=== PATIENT | male | born 1970 | race Hispanic/Latino ===

== ENCOUNTER 2020-11-22 19:56 | Emergency (ER) | payer OTHER ==
[2020-11-22] MEDS ORDERED: MORPHINE 4 MG/1 ML INJ IV ONE ×2 (20:09→23:01)
[2020-11-22] MEDS ORDERED: KETOROLAC 30 MG/1 ML INJ IV ONE (20:09)
[2020-11-22] MEDS ORDERED: TETANUS,DIPH,PERTUSS(ACELL) VACCINE 0.5 ML SYRINGE IM ONE (20:09)
[2020-11-22] MEDS ORDERED: ONDANSETRON 4 MG/2 ML INJ IV ONE ×2 (20:09→23:01)
[2020-11-22] MEDS ORDERED: ceFAZolin/NS 1 GM/50 ML 1 GM/50 ML BAG IV ONE (20:09)
--- NOTE | 2020-11-22 20:14 | Emergency Department Report ---
ED Trauma HPI - General Chief Complaint: Multiple Trauma Stated Complaint: FALL Time Seen by Provider: 11/22/20 19:59 Source: patient Exam Limitations: no limitations - History of Present Illness Initial Comments: 50-year-old male with past medical history of peptic ulcer surgery presents to the hospital after falling off of a one-story roof 1 hour prior to arrival. Patient states he fell off a roof while cleaning the gutters and he landed on a grill. He did not come to the ER immediately. He admits to drinking a sixpack of beer today. He denies LOC and complains of left-sided rib, left flank, and left ankle pain. Patient states unable to bear weight on left ankle since fall. Tetanus status unknown. Code trauma initiated Allergies/Adverse Reactions: Allergies No Known Allergies Allergy (Verified 11/22/20 22:42) Home Medications: Ambulatory Orders HYDROcodone/APAP 5-325 [[place] 5/325] 1 each PO Q6HR PRN #15 tablet 11/22/20 Ibuprofen [Motrin] 800 mg PO Q8HR PRN #20 tablet 11/22/20 cephALEXin [Keflex] 500 mg PO Q6HR #28 capsule 11/22/20 ED Review of Systems ROS: Stated complaint: FALL Other details as noted in HPI Comment: All other systems reviewed and negative ED Past Medical Hx - Past Medical History Previous Medical History?: Yes Additional medical history: Stomach Ulcer - Surgical History Past Surgical History?: Yes Additional Surgical History: Stomach uler surgery - Social History Smoking Status: Current Some Day Smoker Substance Use Type: Alcohol - Medications Home Medications: Home Medications Medication Instructions Recorded Confirmed Last Taken Type HYDROcodone/APAP 5-325 [[place] 1 each PO Q6HR PRN #15 tablet 11/22/20 Unknown Rx 5/325] Ibuprofen [Motrin] 800 mg PO Q8HR PRN #20 tablet 11/22/20 Unknown Rx cephALEXin [Keflex] 500 mg PO Q6HR #28 capsule 11/22/20 Unknown Rx ED Physical Exam - General Limitations: No Limitations - Other Other exam information: General: No acute distress Head: Atraumatic, no hematoma Eyes: normal appearance ENT: Moist mucous membranes Neck: Normal appearance, no midline tenderness Chest: Clear to auscultation bilaterally. Tenderness to left anterior lateral chest without crepitus. CV: Regular rate and rhythm Abdomen: Soft, normal bowel sounds, midline surgical scar epigastric scar from previous PUD surgery, nondistended, no rebound or guarding Back: Normal inspection Extremity: Ecchymosis/contusion noted to right distal tibia with tenderness. Full range of motion of bilateral upper extremity, the left lower extremity. 7 x 6 cm skin avulsion at the medial left ankle with mild bleeding. 2+ DP pulses bilaterally. Cap refill less than 2 seconds. No other extremity injury. Neuro: Alert O x 3, no facial asymmetry, speech clear, no gross motor sensory deficit. GCS 15 Psych: Appropriate behavior Skin: No rash ED Course Vital Signs 11/22/20 11/22/20 11/22/20 20:01 20:15 20:31 Temperature 98.4 F Pulse Rate 65 Respiratory 20 21 22 Rate Blood Pressure 142/84 142/84 Blood Pressure 147/87 [Left] O2 Sat by Pulse 98 99 98 Oximetry 11/22/20 11/22/20 11/22/20 20:39 21:04 21:15 Temperature Pulse Rate 76 69 Respiratory 20 14 18 Rate Blood Pressure 142/84 142/84 Blood Pressure [Left] O2 Sat by Pulse Oximetry 11/22/20 11/22/20 11/22/20 21:31 21:45 22:01 Temperature Pulse Rate 76 71 75 Respiratory 16 15 15 Rate Blood Pressure 142/84 142/84 142/84 Blood Pressure [Left] O2 Sat by Pulse Oximetry 11/22/20 22:15 Temperature Pulse Rate 68 Respiratory 20 Rate Blood Pressure 142/84 Blood Pressure [Left] O2 Sat by Pulse Oximetry - Consultations Consultation #1: 11/22/20 22:31 Case d/w [facility] medical front desk coordinator , xray images and skin wound image reviewed. Recommend dressing, posterior splint, and outpatient follow-up ED Medical Decision Making - Lab Data Result diagrams: 11/22/20 20:12 11/22/20 20:12 Lab Results 11/22/20 11/22/20 11/22/20 Range/Units 20:12 20:12 20:12 WBC 11.0 (4.5-11.0) K/mm3 RBC 3.87 (3.65-5.03) M/mm3 Hgb 12.2 (11.8-15.2) gm/dl Hct 35.6 (35.5-45.6) % MCV 92 (84-94) fl MCH 32 (28-32) pg MCHC 34 (32-34) % RDW 12.8 L (13.2-15.2) % Plt Count 170 (140-440) K/mm3 Lymph % (Auto) 10.1 L (13.4-35.0) % [place] % (Auto) 3.9 (0.0-7.3) % Eos % (Auto) 0.2 (0.0-4.3) % Baso % (Auto) 0.2 (0.0-1.8) % Lymph # (Auto) 1.1 L (1.2-5.4) K/mm3 [place] # (Auto) 0.4 (0.0-0.8) K/mm3 Eos # (Auto) 0.0 (0.0-0.4) K/mm3 Baso # (Auto) 0.0 (0.0-0.1) K/mm3 Seg Neutrophils % 85.6 H (40.0-70.0) % Seg Neutrophils # 9.4 H (1.8-7.7) K/mm3 Sodium 128 L (137-145) mmol/L Potassium 3.9 (3.6-5.0) mmol/L Chloride 94.8 L (98-107) mmol/L Carbon Dioxide 23 (22-30) mmol/L Anion Gap 14 mmol/L BUN 16 (9-20) mg/dL Creatinine 0.8 (0.8-1.3) mg/dL Estimated GFR > 60 ml/min BUN/Creatinine Ratio 20 % Glucose 131 H (75-100) mg/dL Calcium 8.3 L (8.4-10.2) mg/dL Total Bilirubin 0.60 (0.1-1.2) mg/dL AST 24 (5-40) units/L ALT 16 (7-56) units/L Alkaline Phosphatase 41 (35-129) units/L Total Protein 6.4 (6.3-8.2) g/dL Albumin 4.3 (3.9-5) g/dL Albumin/Globulin Ratio 2.0 % Plasma/Serum Alcohol 0.21 H (0-0.07) % Blood Type Antibody Screen 11/22/20 Range/Units 20:12 WBC (4.5-11.0) K/mm3 RBC (3.65-5.03) M/mm3 Hgb (11.8-15.2) gm/dl Hct (35.5-45.6) % MCV (84-94) fl MCH (28-32) pg MCHC (32-34) % RDW (13.2-15.2) % Plt Count (140-440) K/mm3 Lymph % (Auto) (13.4-35.0) % [place] % (Auto) (0.0-7.3) % Eos % (Auto) (0.0-4.3) % Baso % (Auto) (0.0-1.8) % Lymph # (Auto) (1.2-5.4) K/mm3 [place] # (Auto) (0.0-0.8) K/mm3 Eos # (Auto) (0.0-0.4) K/mm3 Baso # (Auto) (0.0-0.1) K/mm3 Seg Neutrophils % (40.0-70.0) % Seg Neutrophils # (1.8-7.7) K/mm3 Sodium (137-145) mmol/L Potassium (3.6-5.0) mmol/L Chloride (98-107) mmol/L Carbon Dioxide (22-30) mmol/L Anion Gap mmol/L BUN (9-20) mg/dL Creatinine (0.8-1.3) mg/dL Estimated GFR ml/min BUN/Creatinine Ratio % Glucose (75-100) mg/dL Calcium (8.4-10.2) mg/dL Total Bilirubin (0.1-1.2) mg/dL AST (5-40) units/L ALT (7-56) units/L Alkaline Phosphatase (35-129) units/L Total Protein (6.3-8.2) g/dL Albumin (3.9-5) g/dL Albumin/Globulin Ratio % Plasma/Serum Alcohol (0-0.07) % Blood Type A POSITIVE Antibody Screen Negative - Radiology Data Radiology results: report reviewed LEFT ANKLE 4 VIEW(S) INDICATION / CLINICAL INFORMATION: Left tib-fib injury after falling off a roof COMPARISON: None available. FINDINGS: BONES / JOINT(S): Mildly displaced posterior malleolus fracture of the posterior distal left tibia extending into the central tibial plafond. No significant arthritis. Small ankle joint effusion. SOFT TISSUES: Soft tissue laceration of the posterior medial left ankle. No radiopaque foreign body. ADDITIONAL FINDINGS: None. CHEST 1 VIEW 11/22/2020 7:49 PM INDICATION / CLINICAL INFORMATION: Left-sided chest pain.. COMPARISON: None available. FINDINGS: SUPPORT DEVICES: None. HEART / MEDIASTINUM: No significant abnormality. LUNGS / PLEURA: No significant pulmonary or pleural abnormality. No pneumothorax. ADDITIONAL FINDINGS: Mildly displaced fracture of the lateral left 6th rib. IMPRESSION: 1. Lateral left 6th rib fracture. LEFT TIBIA-FIBULA 2 VIEW(S) INDICATION / CLINICAL INFORMATION: Left tib-fib injury after falling off a roof COMPARISON: None available. FINDINGS: BONES / JOINT(S): Mildly displaced posterior malleolus fracture of the posterior distal left tibia extending into the central tibial plafond. No significant arthritis. Small ankle joint effusion. SOFT TISSUES: Soft tissue laceration of the posterior medial left ankle. No radiopaque foreign body. ADDITIONAL FINDINGS: None. NONENHANCED CT SCAN OF THE HEAD: INDICATION / CLINICAL INFORMATION: 50 years Male; fall off roof, etoh. TECHNIQUE: Routine CT head without contrast. All CT scans at this location are performed using CT dose reduction for ALARA by means of automated exposure control. COMPARISON: None. FINDINGS: BRAIN / INTRACRANIAL CONTENTS: Motion related artifacts obscuring the details limiting the CT scan No intracranial sequela from the trauma; scalp hematoma on the left side; no air-fluid level in the paranasal sinuses No acute hemorrhage, mass effect, midline shift, hydrocephalus, or acute, large territorial infarct. No chronic infarct or focal atrophy. Normal brain volume and ventricular/sulcal size for age. No significant white matter abnormality. CRANIOCERVICAL JUNCTION: No significant abnormality. ORBITS: No significant abnormality of visualized orbits. SINUSES / MASTOIDS: No significant abnormality of the visualized paranasal sinuses or mastoid air cells. ADDITIONAL FINDINGS: None. IMPRESSION: Limited CT scan due to motion related artifacts No intracranial sequela from the trauma CT CHEST, ABDOMEN, AND PELVIS WITH CONTRAST INDICATION / CLINICAL INFORMATION: fall off roof, left rib pain. TECHNIQUE: Axial CT images were obtained through the chest, abdomen, and pelvis after 100 mL Omnipaque [address] scans at this location are performed using CT dose reduction for ALARA by means of automated exposure control. COMPARISON: None available. FINDINGS: HEART: No significant abnormality. CORONARY ARTERY CALCIFICATION: Mild. THORACIC AORTA: No significant abnormality. MEDIASTINUM / NAVEED: No significant abnormality. PLEURA: No pleural effusion. No pneumothorax. LUNGS: Mild bibasilar atelectasis. ADDITIONAL CHEST FINDINGS: None. LIVER: No significant abnormality. GALLBLADDER: No significant abnormality. BILE DUCTS: No significant abnormality. PANCREAS: No significant abnormality. SPLEEN: No significant abnormality. ADRENALS: No significant abnormality. RIGHT KIDNEY / URETER: No significant abnormality. LEFT KIDNEY / URETER: No significant abnormality. STOMACH and SMALL BOWEL: No significant abnormality. COLON: Diverticulosis without acute inflammation. APPENDIX: No significant abnormality. PERITONEUM: No free fluid. No free air. No fluid collection. LYMPH NODES: No significant adenopathy. AORTA / ARTERIES: Mild atherosclerotic calcification without acute abnormality. IVC / VEINS: No significant abnormality. URINARY BLADDER: No significant abnormality. REPRODUCTIVE ORGANS: No significant abnormality. ADDITIONAL FINDINGS: None. SKELETAL SYSTEM: Mildly displaced fractures of left lateral 6th and 7th ribs. IMPRESSION: 1. Mildly displaced fractures of the left lateral 6th and 7th ribs. 2. No additional injury of the chest, abdomen, or pelvis. RIGHT TIBIA-FIBULA 2 VIEW(S) INDICATION / CLINICAL INFORMATION: leg bruising, fall off roof COMPARISON: None available. FINDINGS: BONES / JOINT(S): No acute fracture or subluxation. Mild right ankle tibiotalar degenerative arthrosis. SOFT TISSUES: Mild diffuse soft tissue swelling of the right knee and right lower leg. ADDITIONAL FINDINGS: None. - Medical Decision Making Patient had a significant fall off a one-story roof with a 1 hour delay per ED presentation. He admits to EtOH use today therefore physical exam and feedback not considered entirely reliable and full imaging performed. Imaging reveals 2 left-sided rib fractures without pulmonary contusion. Patient is not have hypoxia, shortness of breath or tachypnea. X-ray reveals a distal tibia fracture and an open wound that is not amenable to repair due to skin avulsion. Case discussed with on-call orthopedic surgeon who recommends dressing with posterior splint placement and outpatient follow-up. Patient received 1 g Ancef and tetanus in the ED as well as morphine and Zofran. Wound was irrigated with Betadine and saline and dressing placed prior to splint placement. Patient's hyponatremia likely secondary to drinking beer. He did receive 1 L normal saline. splint inspected prior to d/c Critical Care Time: Yes Critical care time in (mins) excluding proc time.: 35 Critical care attestation.: If time is entered above; I have spent that time in minutes in the direct care of this critically ill patient, excluding procedure time. ED Disposition Clinical Impression: Fall from roof, Open fracture of left distal tibia, Skin avulsion, Left rib fracture, Alcohol intoxication, Hyponatremia Disposition: TO HOME OR SELFCARE Is pt being admited?: No Does the pt Need Aspirin: No Condition: Stable Instructions: Diphtheria/Tetanus Toxoids; Pertussis Vaccine, DTP injection, Rib Fracture, Ankle Fracture, Deep Skin Avulsion, Crutch Use, Adult Additional Instructions: Take the medication as prescribed. Follow-up with your doctor or doctor/clinic provided. Return if symptoms worsen as indicated by your discharge ins tructions. Prescriptions: cephALEXin [Keflex] 500 mg PO Q6HR #28 capsule Ibuprofen [Motrin] 800 mg PO Q8HR PRN #20 tablet PRN Reason: Pain , Severe (7-10) HYDROcodone/APAP 5-325 [[place] 5/325] 1 each PO Q6HR PRN #15 tablet PRN Reason: Pain Referrals: PRIMARY MD [facility] [Primary Care Provider] - 3-5 Days CURT PAYNE MD [Staff Physician] - 3-5 Days (orthopedic doctor ) [facility] [place] [Provider Group] - 3-5 Days (Primary care clinic) SHAGGY KENNEY MD [Staff Physician] - 3-5 Days (Primary care doctor)
[2020-11-22 20:27] LABS: Basophils % (Auto) 0.2 % (0.0-1.8); Eosinophils % (Auto) 0.2 % (0.0-4.3); Hematocrit 35.6 % (35.5-45.6); Hemoglobin 12.2 gm/dl (11.8-15.2); Lymphocytes # (Auto) 1.1 K/mm3 (1.2-5.4); Lymphocytes % (Auto) 10.1 % (13.4-35.0); Mean Corpuscular HGB Conc 34 % (32-34); Mean Corpuscular Volume 92 fl (84-94); Monocytes # (Auto) 0.4 K/mm3 (0.0-0.8); Monocytes % (Auto) 3.9 % (0.0-7.3); Platelet Count 170 K/mm3 (140-440); Red Blood Count 3.87 M/mm3 (3.65-5.03); Red Cell Distribution Width 12.8 % (13.2-15.2)
[2020-11-22 20:42] VITALS: BP 142/84
[2020-11-22 20:55] LABS: Alanine Aminotransferase 16 units/L (7-56); Albumin 4.3 g/dL (3.9-5); BUN/Creatinine Ratio 20; Blood Urea Nitrogen 16 mg/dL (9-20); Calcium 8.3 mg/dL (8.4-10.2); Hemolysis Index 8
--- NOTE | 2020-11-22 20:59 | XRay Report ---
LEFT TIBIA-FIBULA 2 VIEW(S) INDICATION / CLINICAL INFORMATION: Left tib-fib injury after falling off a roof COMPARISON: None available. FINDINGS: BONES / JOINT(S): Mildly displaced posterior malleolus fracture of the posterior distal left tibia ex tending into the central tibial plafond. No significant arthritis. Small ankle joint effusion. SOFT TISSUES: Soft tissue laceration of the posterior medial left ankle. No radiopaque foreign body. ADDITIONAL FINDINGS: None. Signer Name: Marcos Graves MD Signed: 11/22/2020 8:55 PM Workstation Name: [id number]
--- NOTE | 2020-11-22 21:00 | XRay Report ---
LEFT ANKLE 4 VIEW(S) INDICATION / CLINICAL INFORMATION: Left tib-fib injury after falling off a roof COMPARISON: None available. FINDINGS: BONES / JOINT(S): Mildly displaced posterior malleolus fracture of the posterior distal left tibia ex tending into the central tibial plafond. No significant arthritis. Small ankle joint effusion. SOFT TISSUES: Soft tissue laceration of the posterior medial left ankle. No radiopaque foreign body. ADDITIONAL FINDINGS: None. Signer Name: Marcos Graves MD Signed: 11/22/2020 8:55 PM Workstation Name: [id number]
[2020-11-22] MEDS ORDERED: SODIUM CHLORIDE 0.9% 1000 ML 1,000 ML IV ONE (21:01)
--- NOTE | 2020-11-22 21:25 | Cat Scan Report ---
NONENHANCED CT SCAN OF THE HEAD: INDICATION / CLINICAL INFORMATION: 50 years Male; fall off roof, etoh. TECHNIQUE: Routine CT head without contrast. All CT scans at this location are performed using CT dos e reduction for ALARA by means of automated exposure control. COMPARISON: None. FINDINGS: BRAIN / INTRACRANIAL CONTENTS: Motion related artifacts obscuring the details limiting the CT scan No intracranial sequela from the trauma; scalp hematoma on the left side; no air-fluid level in the p aranasal sinuses No acute hemorrhage, mass effect, midline shift, hydrocephalus, or acute, large territorial infarct. No chronic infarct or focal atrophy. Normal brain volume and ventricular/sulcal size for age. No sign ificant white matter abnormality. CRANIOCERVICAL JUNCTION: No significant abnormality. ORBITS: No significant abnormality of visualized orbits. SINUSES / MASTOIDS: No significant abnormality of the visualized paranasal sinuses or mastoid air harmony ls. ADDITIONAL FINDINGS: None. IMPRESSION: Limited CT scan due to motion related artifacts No intracranial sequela from the trauma Signer Name: Maribell Morin MD Signed: 11/22/2020 9:20 PM Workstation Name: [email or web address]
--- NOTE | 2020-11-22 21:27 | Cat Scan Report ---
Exam: CT cervical spine History: fall off roof, etoh; Technique: Contiguous thin cut axial images obtained through the cervical spine. Sagittal and mcknight l reconstructions performed by the technologist. All CT scans at this location are performed using CT dose reduction for ALARA by means of automated exposure control. Findings: No priors. There is no evidence of fracture or traumatic subluxation. Vertebral bodies are normal in height and alignment. Intervertebral disc spaces are well-maintained. Degenerative changes in the left C7-T1 facet; No significant canal stenosis or osseous foraminal narr owing. Surrounding soft tissues are grossly normal. Impression: No signs of acute bony trauma to the cervical spine. Signer Name: Maribell Morin MD Signed: 11/22/2020 9:23 PM Workstation Name: [email or web address]
--- NOTE | 2020-11-22 21:34 | XRay Report ---
CHEST 1 VIEW 11/22/2020 7:49 PM INDICATION / CLINICAL INFORMATION: Left-sided chest pain.. COMPARISON: None available. FINDINGS: SUPPORT DEVICES: None. HEART / MEDIASTINUM: No significant abnormality. LUNGS / PLEURA: No significant pulmonary or pleural abnormality. No pneumothorax. ADDITIONAL FINDINGS: Mildly displaced fracture of the lateral left 6th rib. IMPRESSION: 1. Lateral left 6th rib fracture. Signer Name: Marcos Graves MD Signed: 11/22/2020 9:29 PM Workstation Name: [id number]
--- NOTE | 2020-11-22 21:37 | XRay Report ---
RIGHT TIBIA-FIBULA 2 VIEW(S) INDICATION / CLINICAL INFORMATION: leg bruising, fall off roof COMPARISON: None available. FINDINGS: BONES / JOINT(S): No acute fracture or subluxation. Mild right ankle tibiotalar degenerative arthrosi s. SOFT TISSUES: Mild diffuse soft tissue swelling of the right knee and right lower leg. ADDITIONAL FINDINGS: None. Signer Name: Marcos Graves MD Signed: 11/22/2020 9:33 PM Workstation Name: [email or web address]
--- NOTE | 2020-11-22 21:41 | Cat Scan Report ---
CT CHEST, ABDOMEN, AND PELVIS WITH CONTRAST INDICATION / CLINICAL INFORMATION: fall off roof, left rib pain. TECHNIQUE: Axial CT images were obtained through the chest, abdomen, and pelvis after 100 mL Omnipaqu e [address] scans at this location are performed using CT dose reduction for RITU zamarripa of automated exposure control. COMPARISON: None available. FINDINGS: HEART: No significant abnormality. CORONARY ARTERY CALCIFICATION: Mild. THORACIC AORTA: No significant abnormality. MEDIASTINUM / NAVEED: No significant abnormality. PLEURA: No pleural effusion. No pneumothorax. LUNGS: Mild bibasilar atelectasis. ADDITIONAL CHEST FINDINGS: None. LIVER: No significant abnormality. GALLBLADDER: No significant abnormality. BILE DUCTS: No significant abnormality. PANCREAS: No significant abnormality. SPLEEN: No significant abnormality. ADRENALS: No significant abnormality. RIGHT KIDNEY / URETER: No significant abnormality. LEFT KIDNEY / URETER: No significant abnormality. STOMACH and SMALL BOWEL: No significant abnormality. COLON: Diverticulosis without acute inflammation. APPENDIX: No significant abnormality. PERITONEUM: No free fluid. No free air. No fluid collection. LYMPH NODES: No significant adenopathy. AORTA / ARTERIES: Mild atherosclerotic calcification without acute abnormality. IVC / VEINS: No significant abnormality. URINARY BLADDER: No significant abnormality. REPRODUCTIVE ORGANS: No significant abnormality. ADDITIONAL FINDINGS: None. SKELETAL SYSTEM: Mildly displaced fractures of left lateral 6th and 7th ribs. IMPRESSION: 1. Mildly displaced fractures of the left lateral 6th and 7th ribs. 2. No additional injury of the chest, abdomen, or pelvis. Signer Name: Marcos Graves MD Signed: 11/22/2020 9:37 PM Workstation Name: [id number]
[2020-11-22] MEDS ORDERED: SODIUM CHLORIDE IRRI 500 ML 500 ML IR ONE (22:32)
[2020-11-22] MEDS ORDERED: MORPHINE 4 MG/1 ML INJ ONE (23:01)
== END 2020-11-23 00:44 | disposition home or self-care (01) ==
LOC: ED 19:56
DX: S82.302A Unspecified fracture of lower end of left tibia, initial encounter for closed fracture (principal); T14.8XXA Other injury of unspecified body region, initial encounter; E87.1 Hypo-osmolality and hyponatremia; F10.129 Alcohol abuse with intoxication, unspecified; F17.200 Nicotine dependence, unspecified, uncomplicated; Z79.899 Other long term (current) drug therapy; W13.2XXA Fall from, out of or through roof, initial encounter; Y93.89 Activity, other specified; Y92.89 Other specified places as the place of occurrence of the external cause; Y99.8 Other external cause status
CPT/HCPCS: 36415; 70450; 71045; 71260; 72125; 73590; 73610; 74177; 80053; 85025; 86850; 86900; 86901; 90471; 90715; 96361; 96365; 96375; 99284; J0690; J1885; J2270; J2405; J7030; Q9967; 80320; G0480